=== PATIENT | female | born 1985 | race Caucasian/White ===

== ENCOUNTER 2016-08-17 02:58 | Emergency (ER) | payer OTHER ==
[~2016-08-17] VITALS: Ht 167.6 cm; Wt 85.5 kg
[2016-08-17 03:02] VITALS: Ht 167.6 cm; Wt 85.5 kg
[2016-08-17] MEDS ORDERED: CETI10CA PO (04:42)
[2016-08-17] MEDS ORDERED: AMO500 PO (04:42)
[2016-08-17] MEDS ORDERED: IBUP-1542 PO (04:42)
--- NOTE | 2016-08-17 05:02 | ERD ---
ER Documentation Chief Complaint Date/Time DATE: 08/17/16 TIME: 04:59 Chief Complaint left ear pain x 4 days HPI 31-year-old female presents here in emergency department for complaints of left ear pain started 4 days ago. Patient describes the pain as throbbing pain, 6/10 scale, not better or worse with anything. Patient denies any radiation. Patient denies any problems with hearing. Patient did not take any medications elevated symptoms. Patient denies any fever or chills. ROS All systems reviewed and are negative except as per history of present illness. Medications Home Meds Active Scripts Cetirizine Hcl* (Zyrtec*) 10 Mg Capsule, 10 MG PO DAILY, #30 TAB.CHEW Prov:ROBERT QURESHI [employer] 08/17/16 Ibuprofen* (Motrin*) 600 Mg Tab, 600 MG PO Q6H Y for PAIN AND OR ELEVATED TEMP, #30 TAB Prov:ROBERT QURESHI [employer] 08/17/16 Amoxicillin* (Amoxicillin*) 500 Mg Cap, 500 MG PO TID for 10 Days, CAP Prov:ROBERT QURESHI [employer] 08/17/16 Allergies Allergies: Coded Allergies: No Known Allergy (Unverified , 08/17/16) PMhx/Soc Medical and Surgical Hx: pt denies Medical Hx, pt denies Surgical Hx Hx Alcohol Use: No Hx Substance Use: No Hx Tobacco Use: No Smoking Status: Never smoker FmHx Family History: diabetes Physical Exam Vitals Vital Signs Date Time Temp Pulse Resp B/P Pulse Ox O2 Delivery O2 Flow Rate FiO2 08/17/16 03:02 98.3 86 20 130/79 100 Physical Exam GENERAL: The patient is well developed and appropriate for usual state of health, in no apparent distress. HEENT: Atraumatic. Ears: Left ear tympanic membrane is noted to be erythematous and bulging. Normal right tympanic membrane, no erythema or bulging. No ear canal swelling. No ear discharge. Nose: normal nasal turbinates, no erythema or swelling. Normal nasal discharge. Throat: oropharynx clear. No tonsillar swelling or tonsillar exudates. No lymphadenopathy. CHEST: Clear to auscultation bilaterally. There are no rales, wheezes or rhonchi. HEART: Regular rate and rhythm. No murmurs, clicks, rubs or gallops. No S3 or S4. ABDOMEN: Soft, nontender and nondistended. Good bowel sounds. No rebound or guarding. No gross peritonitis. No gross organomegaly or masses. No Mcdonald sign or McBurney point tenderness. BACK: No midline or flank tenderness. EXTREMITIES: Equal pulses bilaterally. There is no peripheral clubbing, cyanosis or edema. No focal swelling or erythema. Full range of motion. Grossly neurovascularly intact. NEURO: Alert and oriented. Cranial nerves 2-12 intact. Motor strength in all 4 extremities with 5/5 strength. Sensation grossly intact. Normal speech and gait. SKIN: There is no apparent rash or petechia. The skin is warm and dry. HEMATOLOGIC AND LYMPHATIC: There is no evidence of excessive bruising or lymphedema. No gross cervical, axillary, or inguinal lymphadenopathy. Procedures/MDM Medical decision making: Patient's left ear pain consistent with otitis media. No symptoms of otitis externa or mastoiditis. No foreign body. No TM perforation noted. Prescription was given for Zyrtec, ibuprofen, amoxicillin, is advised to avoid using Q-tips to clean the ear. Patient was advised to take medications as prescribed. Patient was advised to follow-up with primary care doctor in 2-3 days for reevaluation of symptoms. Patient was advised to return to emergency department for any worsening symptoms. Departure Diagnosis: Primary Impression: Left otitis media Otitis media type: serous Chronicity: acute Recurrence: not specified as recurrent Qualified Code: H65.02 - Acute serous otitis media of left ear, recurrence not specified Condition: Stable Patient Instructions: Otitis Media, Abx Tx (Adult) ROBERT QURESHI NP Aug 17, 2016 05:02
== END 2016-08-17 05:12 | disposition home or self-care (01) ==
LOC: FTE 02:58
DX: H65.02 Acute serous otitis media, left ear (principal)
CPT/HCPCS: 99283